=== PATIENT | female | born 1955 ===

== ENCOUNTER 2022-10-26 15:29 | Inpatient (IN) | payer OTHER ==
[~2022-10-26] VITALS: Ht 180.3 cm; Wt 92.1 kg
[2022-10-27] MEDS ORDERED: CARDURA XL4 MG PO (08:50)
[2022-10-27] MEDS ORDERED: ATACAND HCT 321 EAC1 PO (08:50)
[2022-10-27] MEDS ORDERED: LIPITOR20 MG PO (08:50)
[2022-10-27] MEDS ORDERED: NORVASC5 MG PO (08:50)
[2022-10-27] MEDS ORDERED: ZOLOFT50 MG PO (08:51)
[2022-10-27] MEDS ORDERED: BREO ELLIPTA 21 EACH IH (08:51)
[2022-10-27] MEDS ORDERED: SINGULAIR10 MG PO (08:51)
[2022-11-02] MEDS ORDERED: VITAMIN D3250 MCG (11:49)
[2022-11-02] MEDS ORDERED: GABAPENTIN100 M2 (11:49)
[2022-11-02] MEDS ORDERED: DICLOFENAC SOD100 MG (11:49)
[2022-11-04] MEDS ORDERED: GABAPENTIN100 MG PO (13:23)
[2022-11-04] MEDS ORDERED: OXYC1TAB9 PO (13:23)
[2022-11-04] MEDS ORDERED: XARELTO10 MG PO (13:24)
[2022-11-04] MEDS ORDERED: NORFLEX100MG PO (13:24)
== END 2022-11-04 15:26 | DRG 470 ==
LOC: SURG 11-02 07:50 → O/R 11-02 07:50 → SURG 11-02 08:00
PROVIDERS: ADMIT Orthopaedic Surgery; ATTEND Orthopaedic Surgery
PROC: 0SRD0JZ Replacement of Left Knee Joint with Synthetic Substitute, Open Approach (ICD-10-PCS; principal; 2022-11-02 10:15)
DX: M17.12 Unilateral primary osteoarthritis, left knee (principal); D62 Acute posthemorrhagic anemia; M85.662 Other cyst of bone, left lower leg; R26.89 Other abnormalities of gait and mobility; I10 Essential (primary) hypertension